=== PATIENT | female | born 1950 | race Caucasian/White ===

== ENCOUNTER 2016-10-03 15:06 | Outpatient (CLI) | payer OTHER ==
--- NOTE | 2016-10-04 15:27 | Mammography Report ---
DIGITAL SCREENING MAMMOGRAM: 10/03/2016 CLINICAL INDICATION: A 66-year-old, for screening. COMPARISON: 08/2012, 09/2010, 01/2009, 06/2007. TECHNIQUE: Routine CC and MLO projections were obtained of the breasts. FINDINGS: Parenchymal tissue within the breasts is predominantly fatty replaced. There are no domina nt masses, suspicious microcalcifications, or secondary signs of malignancy. In comparison to the pre vious studies, there are no significant changes. IMPRESSION: NO MAMMOGRAPHIC EVIDENCE OF MALIGNANCY. NO SIGNIFICANT INTERVAL CHANGES. RECOMMENDATION: Screening mammography is recommended annually. BIRADS category 1 - negative. STANDARD QUALIFYING STATEMENTS 1. This examination was reviewed with the aid of Computed-Aided Detection (CAD). 2. A negative or benign imaging report should not delay biopsy if clinically suspicious findings are present. Consider surgical consultation if warranted. More than 5% of cancers are not identified by i maging. 3. Dense breasts may obscure an underlying neoplasm. JOB #: [id number] EXT JOB #:[id number]
== END 2016-10-03 15:07 | disposition home or self-care (01) ==
LOC: DI.S 15:06
PROVIDERS: ATTEND Family Medicine
DX: Z12.31 Encounter for screening mammogram for malignant neoplasm of breast (principal)
CPT/HCPCS: 77067

== ENCOUNTER 2017-02-02 13:59 | Outpatient (CLI) | payer OTHER ==
--- NOTE | 2017-02-03 13:23 | DEXA Report ---
EXAM: DEXA SCAN 02/02/2017 CLINICAL INDICATION: Postmenopausal. TECHNIQUE: Dual energy x-ray absorptiometry (DXA) was performed on a [employer] system. Regions measured are the AP spine, femoral neck, and, if needed, forearm. COMPARISON: None. In accordance with the International Society for Clinical Densitometry (ISCD) guidelines, data from previous exams may be reanalyzed using current recommendations and techniques. This is done to allow a more accurate basis for comparison with the current study. FINDINGS Data for LUMBAR SPINE is as follows: REGION BMD (g/cm/cm) T-SCORE Z-SCORE L1 0.904 -1.9 -0.4 L2 1.009 -1.6 -0.1 L3 1.125 -0.6 0.9 L4 1.249 0.4 1.9 TOTAL 1.083 -0.8 0.7 NOTE: All evaluable vertebrae are used for classification. Data for HIP is as follows: REGION BMD (g/cm/cm) T-SCORE Z-SCORE Neck 0.809 -1.6 -0.2 TOTAL 0.847 -1.3 -0.1 NOTE: The femoral neck or total proximal femur, whichever is lowest, is used for classification. IMPRESSION: OSTEOPENIA. THE WHO CLASSIFICATION BASED ON THE INTERNATIONAL REFERENCE STANDARD IS OSTEOPENIA. FRACTURE RISK IS INCREASED. RECOMMENDATION: Patients with diagnosis of osteoporosis or osteopenia should have regular bone mineral density assessment. For those eligible for Medicare, routine testing is allowed once every 2 years. Testing frequency can be increased for patients who have rapidly progressing disease or for those who are receiving medical therapy to restore bone mass. COMMENT: World Health Organization (WHO) definitions for osteoporosis and osteopenia: NORMAL BMD: T-score at 1.0 or higher, fracture risk is low. OSTEOPENIA BMD: T-score between 1.0 and -2.5, fracture risk is increased. OSTEOPOROSIS BMD: T-score at 2.5 or lower, fracture risk high. National Osteoporosis Foundation recommends: 1. Obtain adequate dietary calcium (at least 1200 mg per day) and vitamin D (400 -800 international units per day). 2. Participate, as appropriate, in regular weightbearing and muscle- strengthening exercise. 3. Avoid tobacco use and reduce alcohol and caffeine intake. 4. For more detailed information see the website at www.NOF.org. MTDD
== END 2017-02-02 14:00 | disposition home or self-care (01) ==
LOC: DI 13:59
PROVIDERS: ATTEND Family Medicine
DX: Z13.820 Encounter for screening for osteoporosis (principal); M85.88 Other specified disorders of bone density and structure, other site
CPT/HCPCS: 77080

== ENCOUNTER 2019-10-29 14:54 | Outpatient (CLI) | payer MEDICARE, OTHER ==
--- NOTE | 2019-10-30 07:56 | Mammography Report ---
BILATERAL DIGITAL SCREENING MAMMOGRAM 3D/2D: 10/29/2019 CLINICAL: Routine screening. Comparison is made to exams dated: 10/03/2016 mammogram, 08/30/2012 mammogram, and 09/12/2010 mammogram - [facility]. The tissue of both breasts is predominantly fatty. No significant masses, calcifications, or other findings are seen in either breast. There has been no significant interval change. IMPRESSION: NEGATIVE There is no mammographic evidence of malignancy. A 1 year screening mammogram is recommended. This exam was interpreted at Station ID: [id number]. NOTE: For mammograms, a report in lay terms will be sent to the patient. Approximately 15% of breast malignancies will not be visualized mammographically. In the management of a palpable breast mass, a negative mammogram must not discourage biopsy of a clinically suspicious lesion. Electronically Signed By: Maulik Mackenzie M.D., jr/isabel:10/29/2019 16:13:33 ACR BI-RADS Category 1: Negative 3341F PARENCHYMAL PATTERN: (F) - The breast(s) demonstrate(s) diffuse fatty replacement. BI-RADS CATEGORY: (1) - 1 RECOMMENDATION: (ANNUAL) - Recommend routine annual screening mammography. [id number] 1 year screening LATERALITY: (B)
== END 2019-10-29 14:55 | disposition home or self-care (01) ==
LOC: DI 14:54
PROVIDERS: ATTEND Family Medicine
DX: Z12.31 Encounter for screening mammogram for malignant neoplasm of breast (principal)
CPT/HCPCS: 77063; 77067

== ENCOUNTER 2020-07-20 09:56 | Outpatient (CLI) | payer MEDICARE, OTHER ==
--- NOTE | 2020-07-20 11:48 | XRAY Report ---
PROCEDURE: Cervical Spine 2 View INDICATIONS: NECK PAIN TECHNIQUE: 3 view(s) of the cervical spine were acquired. COMPARISON: CT neck 02/06/2013. FINDINGS: Bones: No fractures or dislocations to the T1 level. The lateral masses of C1 appear intact on the odontoid view. No suspicious bony lesions. Soft tissues: No prevertebral soft tissue swelling. IMPRESSION: There is a minimal degenerative disc disease pattern at the C5-6 level of the cervical s pine and no subluxation is seen. No spinal or foraminal stenosis would be suspected. Reviewed by: Mk Tracey MD on 07/20/2020 11:47 AM PDT Approved by: Mk Tracey MD on 07/20/2020 11:47 AM PDT Station ID: [id number]
== END 2020-07-20 09:57 | disposition home or self-care (01) ==
LOC: DI 09:56
PROVIDERS: ATTEND Family Medicine
DX: M50.322 Other cervical disc degeneration at C5-C6 level (principal)

== ENCOUNTER 2021-05-11 14:11 | Outpatient (CLI) | payer MEDICARE, OTHER ==
--- NOTE | 2021-05-12 08:34 | Mammography Report ---
BILATERAL DIGITAL SCREENING MAMMOGRAM 3D/2D: 05/11/2021 CLINICAL: Routine screening. Comparison is made to exams dated: 10/29/2019 mammogram, 10/03/2016 mammogram, and 08/30/2012 mammogram - [facility]. There are scattered fibroglandular elements in both breasts. No significant masses, calcifications, or other findings are seen in either breast. There has been no significant interval change. IMPRESSION: NEGATIVE There is no mammographic evidence of malignancy. A 1 year screening mammogram is recommended. This exam was interpreted at Station ID: [id number]. NOTE: For mammograms, a report in lay terms will be sent to the patient. Approximately 15% of breast malignancies will not be visualized mammographically. In the management of a palpable breast mass, a negative mammogram must not discourage biopsy of a clinically suspicious lesion. Electronically Signed By: Niels Thompson M.D. aty/penrad:05/11/2021 17:08:00 ACR BI-RADS Category 1: Negative 3341F PARENCHYMAL PATTERN: (A) - The breast(s) demonstrate(s) scattered fibroglandular densities. BI-RADS CATEGORY: (1) - 1 RECOMMENDATION: (ANNUAL) - Recommend routine annual screening mammography. [id number] 1 year screening LATERALITY: (B)
== END 2021-05-11 14:12 | disposition home or self-care (01) ==
LOC: DI.S 14:11
PROVIDERS: ATTEND Family Medicine
DX: Z12.31 Encounter for screening mammogram for malignant neoplasm of breast (principal)

== ENCOUNTER 2021-08-31 07:18 | Day surgery (SDC) | payer MEDICARE, OTHER ==
[2021-08-31] MEDS ORDERED: PROPOFOL 500 MG/50 ML 500 MG/50 ML VIAL ONE (07:25)
[2021-08-31] MEDS ORDERED: LIDOCAINE-MPF 2% 5 ML VIAL ONE (07:25)
[2021-08-31] MEDS ORDERED: DEXTROSE 5% 1,000 ML IV ONE (07:45)
--- NOTE | 2021-08-31 08:14 | ANESTHESIA ---
Pre-Anesthesia VS, & Labs - Diagnosis screening - Procedure colonoscopy Vital Signs: Temp Pulse Resp BP Pulse Ox 36.2 C L 56 L 18 129/82 H 100 08/31/21 07:30 08/31/21 07:30 08/31/21 07:30 08/31/21 07:30 08/31/21 07:30 Height: 5 ft 6 in Weight (kg): 69.4 kg Body Mass Index: 24.7 BMI Classification: Healthy weight - NPO >8 hours - Is Patient ?: No - Lab Results Lab results reviewed: Yes Home Medications and Allergies Allergies/Adverse Reactions: Allergies Allergy/AdvReac Type Severity Reaction Status Date / Time No Known Drug Allergies Allergy Verified 08/31/21 07:52 Anes History & Medical History - Anesthetic History Anesthesia Complications: reports: No previous complications Family history of Anesthesia Complications: Denies Family history of Malignant Hyperthermia: Denies - Medical History Cardiovascular: reports: None Pulmonary: reports: None Gastrointestinal: reports: None Urinary: reports: None Musculoskeletal: reports: None Endocrine/Autoimmune: reports: HyPOthyroidism Skin: reports: Rosacea History of Cancer?: Yes (malanoma) - Surgical History General: reports: Colonoscopy Gynecologic: reports: Hysterectomy Exam General: Alert, Oriented x3 Dental: WNL Mouth Openin Fingerbreadth Neck Mobility: Normal Mallampati classification: II Respiratory: Lungs clear Cardiovascular: Regular rate Mental/Cognitive Status: Alert/Oriented X3, Normal for patient Cognitive Status: Within normal limits Plan Anesthesia Type: General Consent for Procedure(s) Verified and Reviewed: Yes Code Status: Attempt Resuscitation ASA classification: 2-Mild systemic disease Is this case an emergency?: No
[2021-08-31] MEDS ORDERED: LACTATED RINGERS 100 ML IV ONE (09:06)
[2021-08-31 09:28] VITALS: BP 123/81
--- NOTE | 2021-08-31 10:41 | ANESTHESIA POST OP EVALUATION ---
Anesthesia Post Eval - Post Anesthesia Eval Vitals: Last Vital Signs Temp 36.0 C L 08/31/21 09:27 Pulse 54 L 08/31/21 09:27 Resp 14 08/31/21 09:27 BP 123/81 H 08/31/21 09:27 Pulse Ox 100 08/31/21 09:27 CV Function Including HR & BP: Stable Pain Control: Satisfactory Nausea & Vomiting: Negative Mental Status: Baseline Respiratory Status: Airway Patent Hydration Status: Satisfactory Anesthesia Complications: None
== END 2021-08-31 07:19 | disposition home or self-care (01) ==
LOC: SDS 07:18
PROVIDERS: ATTEND Surgery
PROC: 0DBE8ZX Excision of Large Intestine, Via Natural or Artificial Opening Endoscopic, Diagnostic (ICD-10-PCS; principal; 2021-08-31 08:30)
DX: Z12.11 Encounter for screening for malignant neoplasm of colon (principal); K63.5 Polyp of colon; K64.8 Other hemorrhoids; K57.30 Diverticulosis of large intestine without perforation or abscess without bleeding
CPT/HCPCS: 45385; 93005; J7120

== ENCOUNTER 2022-06-28 10:55 | Outpatient (CLI) | payer MEDICARE, OTHER ==
--- NOTE | 2022-06-29 11:21 | Mammography Report ---
BILATERAL DIGITAL SCREENING MAMMOGRAM 3D/2D: 06/28/2022 CLINICAL: Routine screening. Comparison is made to exams dated: 05/11/2021 mammogram, 10/03/2016 mammogram, 10/29/2019 mammogram, mammogram, and 09/12/2010 mammogram - [facility]. There are scattered areas of fibroglandular density in both breasts (category b / 25%-50% glandular t issue). There is a stable benign focal asymmetry in the left breast. No significant masses, calcifications, or other findings are seen in either breast. There has been no significant interval change. IMPRESSION: BENIGN There is no mammographic evidence of malignancy. A 1 year screening mammogram is recommended. Based on the Tyrer Cuzick model (a risk assessment model) the patients lifetime risk is 3.4% and her 10 year risk is 2.5%. According to the ACR, ACS, and NCCN guidelines, an annual breast MRI exam josiane g with mammogram is recommended if the patients lifetime risk is 20% or greater. This exam was interpreted at Station ID: [id number]. NOTE: For mammograms, a report in lay terms will be sent to the patient. Approximately 15% of breast malignancies will not be visualized mammographically. In the management of a palpable breast mass, a negative mammogram must not discourage biopsy of a clinically suspicious lesion. Electronically Signed By: Lance mai/isabel:06/28/2022 13:28:29 letter sent: No_Letter ACR BI-RADS Category 2: Benign Finding(s) 3342F PARENCHYMAL PATTERN: (A) - The breast(s) demonstrate(s) scattered fibroglandular densities. BI-RADS CATEGORY: (2) - 2 Mammogram [id number] 1 year screening LATERALITY: (B)
== END 2022-06-28 10:56 | disposition home or self-care (01) ==
LOC: DI.S 10:55
DX: Z12.31 Encounter for screening mammogram for malignant neoplasm of breast (principal)

== ENCOUNTER 2022-06-28 12:02 | Outpatient (CLI) | payer MEDICARE, OTHER ==
--- NOTE | 2022-06-28 16:26 | XRAY Report ---
PROCEDURE: Chest 2 View X-Ray INDICATIONS: NOTED NODULAR DENSITY IN POSTERIOR LLL TECHNIQUE: 2 views of the chest were acquired. COMPARISON: None. FINDINGS: Surgical changes and devices: None. Lungs and pleura: No pleural effusions or pneumothorax. Lungs are clear. Mediastinum: Mediastinal contours appear normal. Heart size is normal. Bones and chest wall: No suspicious bony lesions. Overlying soft tissues appear unremarkable. IMPRESSION: No acute cardiopulmonary process. Reviewed by: Mayra Heath MD on 06/28/2022 4:25 PM PDT Approved by: Mayra Heath MD on 06/28/2022 4:25 PM PDT Station ID: [id number]
== END 2022-06-28 12:03 | disposition home or self-care (01) ==
LOC: DI.S 12:02
PROVIDERS: ATTEND Family Medicine
DX: R91.1 Solitary pulmonary nodule (principal)

== ENCOUNTER 2022-12-07 13:03 | Outpatient (CLI) | payer MEDICARE, OTHER ==
--- NOTE | 2022-12-07 14:01 | XRAY Report ---
PROCEDURE: Shoulder 2 View RT INDICATIONS: RIGHT SHOULDER PAIN TECHNIQUE: 3 views of the shoulder were acquired. COMPARISON: None. FINDINGS: Bones: No fractures or dislocations. No suspicious bony lesions. Visualized ribs appear intact. Mi ld acromioclavicular joint and glenohumeral joint osteoarthritis. Soft tissues: No suspicious soft tissue calcifications. The visualized lungs are within normal limi ts. IMPRESSION: No fracture. No acute osseous lesion. If symptoms and/or clinical concern for pathology persists, fur ther assessment with advanced imaging (CT, MR, bone scan) should be considered. Mild osteoarthritis. Reviewed by: Jo Barrios MD, PhD on 12/07/2022 1:59 PM PDT Approved by: Jo Barrios MD, PhD on 12/07/2022 1:59 PM PDT Station ID: [id number]
== END 2022-12-07 13:04 | disposition home or self-care (01) ==
LOC: DI.S 13:03
PROVIDERS: ATTEND Family Medicine
DX: M75.101 Unspecified rotator cuff tear or rupture of right shoulder, not specified as traumatic (principal); M19.011 Primary osteoarthritis, right shoulder

== ENCOUNTER 2023-08-14 14:01 | Outpatient (CLI) | payer MEDICARE, OTHER ==
--- NOTE | 2023-08-14 17:40 | DEXA Report ---
PROCEDURE: Dexa Spine and/or Hip INDICATIONS: OSTEOPENIA TECHNIQUE: Dual energy x-ray absorptiometry (DXA) was performed on a [employer] System. Regions measur ed are the AP Spine, femoral neck, and if needed forearm. COMPARISON: 05/19/2021 FINDINGS: Lumbar Spine: Bone Mineral Density: 1.149 g/cm/cm,T score: -0.3. Since the most recent prior study, there has been a statistically significant increase in bone mineral density by 4.5%. Left Femoral Neck: Bone Mineral Density: 0.758 g/cm/cm, T score: -2.0. Left Hip: Bone Mineral Density: 0.825 g/cm/cm,T score: -1.5. Since the most recent prior study, there has been a statistically significant decrease in bone mineral density by 2.6 percent. (T score greater or equal to -1.0: NORMAL) (T score from -1.1 to -2.4: OSTEOPENIA) (T score less than or equal to -2.5 to: OSTEOPOROSIS) Impression: By WHO criteria, this patient has low bone density (osteopenia). Interval statistical increase in bone mineral density of the lumbar spine. Interval statistical decre ase in bone mineral density of the hip. Patients with diagnosis of osteoporosis or osteopenia should have regular bone mineral density assess ment. For those eligible for Medicare, routine testing is allowed once every 2 years. Testing frequ ency can be increased for patients who have rapidly progressing disease or for those who are receivin g medical therapy to restore bone mass. Reviewed by: Mike Lundy MD on 08/14/2023 5:38 PM PDT Approved by: Mike Lundy MD on 08/14/2023 5:38 PM PDT Station ID: [id number]
== END 2023-08-14 14:02 | disposition home or self-care (01) ==
LOC: DI 14:01
PROVIDERS: ATTEND Family Medicine
DX: M85.89 Other specified disorders of bone density and structure, multiple sites (principal); N95.9 Unspecified menopausal and perimenopausal disorder